=== PATIENT | female | born 1980 | race Caucasian/White ===

== ENCOUNTER 2017-10-03 09:56 | Outpatient (CLI) ==
--- NOTE | 2017-10-03 10:32 | US ---
EXAM: Right breast ultrasound. History: Right breast mass. Comparison: Diagnostic mammogram 09/23/2017 Technique: Multiple sonographic images through the right breast were obtained. Color duplex Doppler was used to interrogate vascular flow. Findings: Within the right breast at 9 o'clock 7 cm from nipple there is a 1.5 cm x 1.3 cm x 1.5 cm a nechoic cyst with posterior acoustic enhancement. This correlates with the palpable abnormality and with mammography. There are no suspicious masses. Impression: Benign right breast cyst. Recommend return to routine screening mammography schedule. BIRADS 2
== END 2017-10-03 09:57 | disposition home or self-care (01) ==
LOC: RAD 09:56
PROVIDERS: ATTEND Registered Nurse
DX: N63.13 Unspecified lump in the right breast, lower outer quadrant (principal)

== ENCOUNTER 2018-09-14 03:01 | Emergency (ER) | payer OTHER ==
[2018-09-14 03:14] VITALS: BP 127/85; TEMP 97.3
[2018-09-14 03:25] VITALS: BMI 23.3
--- NOTE | 2018-09-14 05:24 | ED.PDOC ---
General ED Provider: Dr. JHON ESTEVEZ-ER Chief Complaint: Psychiatric Complaint Stated Complaint: "this is drug related" per nursing staff Time Seen by Physician: 03:15 Mode of Arrival: Walk-In Information Source: Patient, Police Exam Limitations: No limitations Primary Care Provider: SOFIE BERRY Nursing and Triage Documentation Reviewed and Agree: Yes Does patient meet sepsis criteria?: No System Inflammatory Response Syndrome: Not Applicable Sepsis Protocol: For patient's 13 years and over: Temp is 96.8 and below OR 101 and greater Pulse >90 BPM Resp >20/minute Acutely Altered Mental Status Are patient's symptoms suggestive of a new infection, such as: -Pneumonia -Skin, Soft Tissue -Endocarditis -UTI -Bone, Joint Infection -Implantable Device -Acute Abdominal Infection -Wound Infection -Meningitis -Blood Stream Catheter Infection -Unknown Psychological Complaint Exam - Substance Abuse/Use Complaint/Exam Patient Complains Of Substance Abuse Of: Other Patient Complains Of Substance Withdrawal Of: Other Character: Present: Fearful, Anxious Aggravating: Reports: None Alleviating: Reports: None Associated Signs And Symptoms: Reports: Paranoid behavior, Social withdrawal Possible Multi Drug Ingestion: No Completed Suicide Risk Factors: Patient Accompanied By: Police Patient In Custody Of Police: No Social Withdrawal Present: No Social Isolation Present: No Prior Suicide Attempt: No Injury From Prior Suicide Attempt: No Patient Uncooperative For Exam: No Appearance: Present: Clean Thought Process: Present: Illogical Insight: Present: Limited Judgement: Normal Danger To Others: No Patient Medically Stable For: Psych evaluation, Referral, Transfer Quality Indicator For Non-Traumatic Chest Pain/Syncope: EKG Performed Review of Systems - Review Of Systems Constitutional: Reports: No symptoms Eyes: Reports: No symptoms Ears, Nose, Mouth, Throat: Reports: No symptoms Respiratory: Reports: No symptoms Cardiac: Reports: No symptoms GI: Reports: No symptoms : Reports: No symptoms Musculoskeletal: Reports: No symptoms Skin: Reports: No symptoms Neurological: Reports: No symptoms Endocrine: Reports: No symptoms Hematologic/Lymphatic: Reports: No symptoms All Other Systems: Reviewed and Negative Past Medical History - Past Medical History Previously Healthy: Yes Endocrine: Reports: Unknown Cardiovascular: Reports: Unknown Respiratory: Reports: Unknown Hematological: Reports: Unknown Gastrointestinal: Reports: Unknown Genitourinary: Reports: None Neuro/Psych: Reports: None Musculoskeletal: Reports: None Cancer: Reports: None Last Menstrual Period: UNKNOWN - Surgical History General Surgical History: Reports: Unknown - Family History Family History: Reports: Unknown - Social History Smoking Status: Unknown if ever smoked Physical Exam - Physical Exam Appearance: Well-appearing, No pain distress, Well-nourished Eyes: PETRONA, EOMI, Conjunctiva clear ENT: Ears normal, Nose normal, Oropharynx normal Neck: Supple Respiratory: Airway patent, Breath sounds clear, Breath sounds equal, Respirations nonlabored Cardiovascular: RRR, Pulses normal, No rub, No murmur GI/: Soft Musculoskeletal: Normal strength, ROM intact, No edema, No calf tenderness Skin: Warm, Dry, Normal color Neurological: Sensation intact Psychiatric: Affect appropriate, Mood appropriate, Anxious Physician Notification - Case Discussed Physician Notified: dr [email or web address] Time of Notification: 07:00 Critical Care Note - Critical Care Note Total Time (mins): 0 Course - Course Hematology/Chemistry: 09/14/18 05:09 09/14/18 05:09 Orders, Labs, Meds: Lab Review 09/14/18 09/14/18 09/14/18 04:06 04:06 05:09 WBC 11.27 H RBC 3.87 L Hgb 11.8 L Hct 33.9 L MCV 87.6 MCH 30.5 MCHC 34.8 RDW Coeff of Sandeep 11.9 Plt Count 322 Immature Gran % (Auto) 0.4 Neut % (Auto) 69.3 Lymph % (Auto) 19.4 [place] % (Auto) 9.1 Eos % (Auto) 1.5 Baso % (Auto) 0.3 Immature Gran # (Auto) 0.0 Neut # (Auto) 7.8 H Lymph # (Auto) 2.2 [place] # (Auto) 1.0 Eos # (Auto) 0.2 Baso # (Auto) 0.0 Sodium Potassium Chloride Carbon Dioxide Anion Gap BUN Creatinine Estimated GFR (MDRD) BUN/Creatinine Ratio Glucose Calcium Total Bilirubin AST ALT Alkaline Phosphatase Total Protein Albumin Globulin Albumin/Globulin Ratio TSH Serum , Qual Urine Color Yellow Urine Clarity Clear Urine pH 6.5 Ur Specific [place] 1.025 Urine Protein Negative Urine Glucose (UA) Negative Urine Ketones Trace Urine Blood 2+ Urine Nitrite Negative Urine Bilirubin Negative Urine Urobilinogen 1.0 Ur Leukocyte Esterase Negative Urine Microscopic RBC 2-5 Ur Squamous Epith Cells 5-10 Urine Bacteria Trace Urine Mucus Trace Salicylate Level mg/dL Urine Opiates Screen Negative Ur Oxycodone Screen Negative Urine Methadone Screen Negative Ur Propoxyphene Screen Negative Acetaminophen Ur Barbiturates Screen Negative U Tricyclic Antidepress Negative Ur Phencyclidine Scrn Negative Ur Amphetamine Screen Positive U Methamphetamines Scrn Negative U Benzodiazepines Scrn Negative Urine Cocaine Screen Negative U Cannabinoids Screen Negative Plasma/Serum Alcohol 09/14/18 09/14/18 05:09 05:09 WBC RBC Hgb Hct MCV MCH MCHC RDW Coeff of Sandeep Plt Count Immature Gran % (Auto) Neut % (Auto) Lymph % (Auto) [place] % (Auto) Eos % (Auto) Baso % (Auto) Immature Gran # (Auto) Neut # (Auto) Lymph # (Auto) [place] # (Auto) Eos # (Auto) Baso # (Auto) Sodium 138.6 Potassium 3.78 Chloride 101.2 Carbon Dioxide 26.5 Anion Gap 14.68 BUN 9.9 Creatinine 0.53 L Estimated GFR (MDRD) 128.00 BUN/Creatinine Ratio 18.67 Glucose 122.0 H Calcium 9.53 Total Bilirubin 0.75 AST 34.1 ALT 14.6 Alkaline Phosphatase 56.6 Total Protein 7.77 Albumin 4.60 Globulin 3.17 Albumin/Globulin Ratio 1.45 TSH 2.660 Serum , Qual Negative Urine Color Urine Clarity Urine pH Ur Specific [place] Urine Protein Urine Glucose (UA) Urine Ketones Urine Blood Urine Nitrite Urine Bilirubin Urine Urobilinogen Ur Leukocyte Esterase Urine Microscopic RBC Ur Squamous Epith Cells Urine Bacteria Urine Mucus Salicylate Level mg/dL < 1.00 Urine Opiates Screen Ur Oxycodone Screen Urine Methadone Screen Ur Propoxyphene Screen Acetaminophen < 10.0 L Ur Barbiturates Screen U Tricyclic Antidepress Ur Phencyclidine Scrn Ur Amphetamine Screen U Methamphetamines Scrn U Benzodiazepines Scrn Urine Cocaine Screen U Cannabinoids Screen Plasma/Serum Alcohol < 10.0 Orders Category Date Time Status EKG-(ED ONLY) Stat CARDIO 09/14/18 05:09 Completed Mental Health Consult [ED MENTAL HEALTH CONSULT] .ONCE EMERGENCY 09/14/18 05: 10 Active BLOOD ALCOHOL Stat LAB 09/14/18 05:09 Completed CBC W/ AUTO DIFF Stat LAB 09/14/18 05:09 Completed COMPREHENSIVE METABOLIC PANEL Stat LAB 09/14/18 05:09 Completed DRUG SCREEN (RAPID FOR ED) [DRUG SCREEN, URINE, RAPID] LAB 09/14/18 04:06 Completed Stat SALICYLATE Stat LAB 09/14/18 05:09 Completed SERUM Stat LAB 09/14/18 05:09 Completed TSH [THYROID STIMULATING HORMONE] Stat LAB 09/14/18 05:09 Completed TYLENOL LEVEL [ACETAMINOPHEN] Stat LAB 09/14/18 05:09 Completed URINALYSIS C & S IF INDICATED Stat LAB 09/14/18 04:06 Completed Vital Signs: Temp Pulse Resp BP Pulse Ox 09/14/18 03:08 97.3 F L 91 H 24 127/85 98 Departure - Departure Time of Disposition: 06:30 Disposition: AMA Discharge Problem: Drug use Instructions: Medical Clearance for Substance Abuse Treatment (ED) Condition: Good Pt referred to PMD for follow-up: Yes IPMP verified?: No Allergies/Adverse Reactions: Allergies adhesive tape Adverse Reaction (Verified 09/14/18 07:22) tramadol [From Ultram] Adverse Reaction (Verified 09/14/18 07:22) ziprasidone [From Geodon] Adverse Reaction (Verified 09/14/18 07:22) Home Medications: Ambulatory Orders Alprazolam [Xanax] 0.5 mg PO BID PRN 09/14/18 Divalproex Sodium [Depakote] 1,200 mg PO DAILY 09/14/18 Oxycodone HCl/Acetaminophen [Percocet 5-325 mg Tablet] 1 each PO Q6H PRN Disposition Discussed With: Patient
== END 2018-09-14 08:20 | disposition left against medical advice (07) ==
LOC: ED 03:01
DX: F19.90 Other psychoactive substance use, unspecified, uncomplicated (principal)
CPT/HCPCS: 36415; 80053; 80306; 80307; 81001; 84443; 84703; 85025; 93005; 93010; 99284

== ENCOUNTER 2018-12-23 00:05 | Emergency (ER) ==
[2018-12-23 00:11] VITALS: TEMP 97.7; BMI 23.9
--- NOTE | 2018-12-23 00:18 | ED.PDOC ---
General ED Provider: Dr. JHON WOOTEN MD Chief Complaint: Back Pain Stated Complaint: upper thoracic back pain Time Seen by Physician: 00:30 Mode of Arrival: Walk-In Information Source: Patient Exam Limitations: No limitations Primary Care Provider: SOFIE BERRY Nursing and Triage Documentation Reviewed and Agree: Yes Does patient meet sepsis criteria?: No If yes, has appropriate treatment been initiated?: Yes System Inflammatory Response Syndrome: Not Applicable Sepsis Protocol: For patient's 13 years and over: Temp is 96.8 and below OR 101 and greater Pulse >90 BPM Resp >20/minute Acutely Altered Mental Status Are patient's symptoms suggestive of a new infection, such as: -Pneumonia -Skin, Soft Tissue -Endocarditis -UTI -Bone, Joint Infection -Implantable Device -Acute Abdominal Infection -Wound Infection -Meningitis -Blood Stream Catheter Infection -Unknown Review of Systems - Review Of Systems Constitutional: Reports: No symptoms Eyes: Reports: No symptoms Ears, Nose, Mouth, Throat: Reports: No symptoms Respiratory: Reports: No symptoms Cardiac: Reports: No symptoms GI: Reports: No symptoms : Reports: No symptoms Musculoskeletal: Reports: Back pain Skin: Reports: No symptoms Neurological: Reports: No symptoms Endocrine: Reports: No symptoms Hematologic/Lymphatic: Reports: No symptoms All Other Systems: Reviewed and Negative Past Medical History - Past Medical History Previously Healthy: Yes Endocrine: Reports: Unknown Cardiovascular: Reports: Unknown Respiratory: Reports: Unknown Hematological: Reports: Unknown Gastrointestinal: Reports: Unknown Genitourinary: Reports: None Neuro/Psych: Reports: None Musculoskeletal: Reports: None Cancer: Reports: None Last Menstrual Period: 2 weeks ago - Surgical History General Surgical History: Reports: Unknown - Family History Family History: Reports: Unknown - Social History Smoking Status: Never smoker Hx Substance Use: No Alcohol Screening: None - Immunizations Tetanus Shot up to Date: Yes Physical Exam - Physical Exam Appearance: Well-appearing, No pain distress, Well-nourished Eyes: PETRONA, EOMI, Conjunctiva clear ENT: Ears normal, Nose normal, Oropharynx normal Respiratory: Airway patent, Breath sounds clear, Breath sounds equal, Respirations nonlabored Cardiovascular: RRR, Pulses normal, No rub, No murmur GI/: Soft, Nontender, No masses, Bowel sounds normal, No Organomegaly Musculoskeletal: Normal strength, ROM intact, No edema, No calf tenderness Skin: Warm, Dry, Normal color Neurological: Sensation intact, Motor intact, Reflexes intact, Cranial nerves intact, Alert, Oriented Psychiatric: Affect appropriate, Mood appropriate, Anxious Critical Care Note - Critical Care Note Total Time (mins): 0 Course - Course Orders, Labs, Meds: Lab Review 12/23/18 00:55 Acetaminophen < 10.0 L Orders Category Date Time Status TYLENOL LEVEL [ACETAMINOPHEN] Stat LAB 12/23/18 00:55 Completed Lorazepam [Ativan] MEDS 12/23/18 00:31 Discontinued 2 mg IM ONCE STA Medications Discontinued Medications Generic Name Dose Route Start Last Admin Trade Name Narda PRN Reason Stop Dose Admin Lorazepam 2 mg 12/23/18 00:31 12/23/18 00:41 Ativan IM 12/23/18 00:32 2 mg ONCE STA Administration Vital Signs: Temp Pulse Resp BP Pulse Ox 12/23/18 00:06 97.7 F 135 H 18 135/86 97 Departure - Departure Time of Disposition: 01:40 Disposition: HOME SELF-CARE Discharge Problem: Anxiety Thoracic back pain Qualifiers: Chronicity: unspecified Back pain laterality: midline Qualified Code(s): M54.6 - Pain in thoracic spine Instructions: Generalized Anxiety Disorder (ED) Condition: Good Pt referred to PMD for follow-up: Yes IPMP verified?: No Allergies/Adverse Reactions: Allergies adhesive tape Adverse Reaction (Verified 12/23/18 00:10) tramadol [From Ultram] Adverse Reaction (Verified 12/23/18 00:10) ziprasidone [From Geodon] Adverse Reaction (Verified 12/23/18 00:10) Home Medications: Ambulatory Orders Alprazolam [Xanax] 0.5 mg PO BID PRN 09/14/18 Divalproex Sodium [Depakote] 1,200 mg PO DAILY 09/14/18 Oxycodone HCl/Acetaminophen [Percocet 5-325 mg Tablet] 1 each PO Q6H PRN
[2018-12-23] MEDS ORDERED: ATIVAN IM STA (00:31)
[2018-12-23 01:49] VITALS: BP 118/74
== END 2018-12-23 01:45 | disposition home or self-care (01) ==
LOC: ED 00:05
DX: M54.6 Pain in thoracic spine (principal); F41.9 Anxiety disorder, unspecified
CPT/HCPCS: 36415; 80307; 96372; 99282